=== PATIENT | female | born 1960 | race American Indian/Alaskan Native ===

== ENCOUNTER 2018-04-20 07:10 | Day surgery (SDC) | payer MEDICARE ==
[~2018-04-20 07:10] MED LIST: NACL 0.9% 1000 ML 1,000 ML IV SCH
[2018-04-20] MEDS ORDERED: DIPRIVAN 10 MG/ML IV ONE (08:43)
--- NOTE | 2018-04-20 09:20 | Anesthesia Consultation ---
Anesthesia Consult and Med Hx Date of service: 04/20/18 - Airway Anesthetic Teeth Evaluation: Poor, Chipped (front) ROM Head & Neck: Adequate Mental/Hyoid Distance: Adequate Mallampati Class: Class I Intubation Access Assessment: Good - Pulmonary Exam CTA: Yes - Cardiac Exam Cardiac Exam: RRR - Pre-Operative Health Status ASA Pre-Surgery Classification: ASA3 Proposed Anesthetic Plan: MAC - Pulmonary Hx Smoking: Yes Hx Asthma: Yes - Cardiovascular System Hx Hypertension: Yes - Gastrointestinal Hx Gastroesophageal Reflux Disease: Yes - Endocrine Hx Non-Insulin Dependent Diabetes: Yes - Other Systems Hx Obesity: Yes
--- NOTE | 2018-04-20 09:20 | Anesthesia Day of Surgery ---
Anesthesia Day of Surgery - Day of Surgery Patient Examined: Yes Patient H&P Reviewed: Yes Patient is NPO: Yes
[2018-04-20] MEDS ORDERED: HURRICAINE ONE 20% TOPICAL SPRAY MM (09:37)
[2018-04-20] MEDS ORDERED: WATER FOR IRRIG STERILE IR ONE (09:55)
[2018-04-20 10:25] VITALS: BP 152/83
[2018-04-20] MEDS ORDERED: HURRICAINE ONE 20% TOPICAL SPRAY MM NR (11:00)
== END 2018-04-20 07:11 | disposition home or self-care (01) ==
LOC: GIO 07:10
PROVIDERS: ATTEND Specialist
DX: K95.89 Other complications of other bariatric procedure (principal); K21.0 Gastro-esophageal reflux disease with esophagitis; K28.9 Gastrojejunal ulcer, unspecified as acute or chronic, without hemorrhage or perforation; I10 Essential (primary) hypertension; G43.909 Migraine, unspecified, not intractable, without status migrainosus; J45.909 Unspecified asthma, uncomplicated; E11.9 Type 2 diabetes mellitus without complications; F17.200 Nicotine dependence, unspecified, uncomplicated; Z68.41 Body mass index [BMI] 40.0-44.9, adult; Y83.2 Surgical operation with anastomosis, bypass or graft as the cause of abnormal reaction of the patient, or of later complication, without mention of misadventure at the time of the procedure; Z88.5 Allergy status to narcotic agent
CPT/HCPCS: 43235; 82962; J2704; J7030